=== PATIENT | female | born 1930 | race Caucasian/White ===

== ENCOUNTER 2018-09-15 09:46 | Inpatient (IN) | payer MEDICARE ==
[~2018-09-15] VITALS: Ht 157.5 cm; Wt 70.0 kg
[~2018-09-15 09:46] MED LIST: EPINEPHRINE 1 MG/ML, 1ML ONE; KETOROLAC 60 MG/2 ML ONE; ROPIvacaine/PF 0.2%, 20 ML ONE; TRANEXAMIC ACID 100 MG/ML, 10ML ONE
[2018-09-15] MEDS ORDERED: LACTATED RINGERS 1,000 ML IV SCH (13:02)
[2018-09-15 13:08] VITALS: BP 139/72
[2018-09-15] MEDS ORDERED: WARF4TAB65 PO (13:13)
[2018-09-15] MEDS ORDERED: ATEN25TA PO (13:13)
[2018-09-15] MEDS ORDERED: LOVA40TA2 PO (13:13)
[2018-09-15] MEDS ORDERED: VANCOMYCIN PER PHARMACY MC ONE (13:30)
[2018-09-15] MEDS ORDERED: VANCOMYCIN 1,200 MG in SODIUM CHLORIDE 0.9% 250 ML IV ONE (13:30)
[2018-09-15] MEDS ORDERED: ACETAMINOPHEN 500 MG TABLET PO ONE (13:30)
[2018-09-15] MEDS ORDERED: GABAPENTIN 300 MG CAPSULE PO ONE (13:30)
[2018-09-15 13:32] LABS: INTERNATIONAL NORMALIZED RATIO 1.03 (0.93-1.1); PROTHROMBIN TIME 10.7 Seconds (9.6-11.5)
[2018-09-15] MEDS ORDERED: FENTANYL PF 250 MCG/5ML ONE (15:18)
[2018-09-15] MEDS ORDERED: ONDANSETRON 2MG/ML, 2ML ONE (15:19)
[2018-09-15] MEDS ORDERED: DEXAMETHASONE 4 MG/ML, 1ML ONE (15:19)
[2018-09-15] MEDS ORDERED: GLYCOPYRROLATE 0.2MG/1ML, 5ML ONE (15:19)
[2018-09-15] MEDS ORDERED: PROPOFOL 10 MG/ML, 20ML ONE (15:19)
[2018-09-15] MEDS ORDERED: NEOSTIGMINE 1 MG/ML, 10ML ONE (15:19)
[2018-09-15] MEDS ORDERED: SUCCINYLCHOLINE 20 MG/ML, 10ML ONE (15:19)
[2018-09-15] MEDS ORDERED: CEFAZOLIN 1,000 MG ONE (15:19)
[2018-09-15] MEDS ORDERED: ROCURONIUM 10MG/ML,5ML ONE (15:19)
[2018-09-15] MEDS ORDERED: PROMETHAZINE 12.5 MG SUPP PR PRN (16:30)
[2018-09-15] MEDS ORDERED: TRANEXAMIC ACID 1,000 MG in SODIUM CHLORIDE 0.9% 100 ML IVPB ONE (16:30)
[2018-09-15] MEDS ORDERED: SENNA/DOCUSATE TABLET PO PRN (16:30)
[2018-09-15] MEDS ORDERED: ONDANSETRON 2MG/ML, 2ML IV PRN ×2 (16:30→17:30)
[2018-09-15] MEDS ORDERED: ONDANSETRON 4 MG TABLET PO PRN (16:30)
[2018-09-15] MEDS ORDERED: DIPHENHYDRAMINE 25 MG CAPSULE PO PRN (16:30)
[2018-09-15] MEDS ORDERED: PROMETHAZINE 25 MG/ML, 1ML IM PRN (16:30)
[2018-09-15] MEDS ORDERED: HYDROmorphone 1 MG/ML, 1ML IV PRN ×2 (16:30→17:30)
[2018-09-15] MEDS ORDERED: ALUMINUM/MAG/SIMETHICONE 30 ML UDC PO PRN (16:30)
[2018-09-15] MEDS ORDERED: OXYcodone IR 5MG TABLET PO PRN (16:30)
[2018-09-15] MEDS ORDERED: PHENYLEPHRINE 10 MG/ML ONE (16:34)
[2018-09-15] MEDS ORDERED: EPHEDRINE 50 MG/ML, 1ML ONE (16:34)
[2018-09-15] MEDS ORDERED: LACTATED RINGERS 1,000 ML ONE (16:34)
[2018-09-15] MEDS ORDERED: hydrALAzine 20 MG/ML, 1ML IV PRN (17:30)
[2018-09-15] MEDS ORDERED: METOPROLOL 1 MG/ML, 5ML IV PRN (17:30)
[2018-09-15] MEDS ORDERED: LORazepam 2 MG/ML, 1ML IVPush PRN (17:30)
[2018-09-15] MEDS ORDERED: ONDANSETRON ODT 8 MG PO PRN (17:30)
[2018-09-15] MEDS ORDERED: MORPHINE SULFATE 4 MG/ML, 1ML IVPush PRN (17:30)
[2018-09-15] MEDS ORDERED: PROCHLORPERAZINE 5 MG/ML, 2ML IV PRN (17:30)
[2018-09-15] MEDS ORDERED: OXYcodone 5 MG/5 ML ORAL.SOL UDC PO PRN (17:30)
[2018-09-15] MEDS ORDERED: FENTANYL PF 100 MCG/2ML IV PRN (17:30)
[2018-09-15] MEDS ORDERED: FENTANYL PF 100 MCG/2ML ONE (17:39)
[2018-09-15] MEDS ORDERED: HYDROmorphone 2 MG/ML, 1ML ONE (18:29)
[2018-09-15 19:35] LABS: BASOPHILS # (AUTO) 0.03 x10^3/uL (0-0.1); BASOPHILS % (AUTO) 0 % (0-1); EOSINOPHILS % (AUTO) 1 % (1-7); LYMPHOCYTES # (AUTO) 2.31 x10^3/uL (1-3.4); LYMPHOCYTES % (AUTO) 16 % (22-44); MD NO; MEAN CORPUSCULAR HEMOGLOBIN 29.7 pg (27.0-34.8); MEAN CORPUSCULAR HGB CONC 33.7 g/dL (32.4-35.8); MEAN CORPUSCULAR VOLUME 88.2 fL (80-100); MEAN PLATELET VOLUME 8.9 fL (7.4-10.4); MONOCYTES # (AUTO) 0.34 x10^3/uL (0.2-0.8); MONOCYTES % (AUTO) 2 % (2-9); NEUTROPHILS # (AUTO) 11.42 x10^3/uL (1.8-6.8); NEUTROPHILS % (AUTO) 80 % (42-75); PLATELET COUNT 205 x10^3/uL (130-400); RED BLOOD COUNT 4.17 x10^6/uL (3.82-5.3); RED CELL DISTRIBUTION WIDTH 14.7 % (9.6-15.2)
[2018-09-15] MEDS: D5%-0.45NACL+KCL 20MEQ 1,000 ML IV SCH (22:21)
[2018-09-15] MEDS: DOCUSATE 100 MG CAPSULE PO SCH (22:21)
[2018-09-15 23:15] VITALS: BP 93/54
[2018-09-16 00:24] VITALS: BP 114/55
[2018-09-16] MEDS: CEFAZOLIN PMX 1GM/50ML 50 ML IVPB SCH ×2 (01:10→10:14)
[2018-09-16 04:18] VITALS: BP 96/52
[2018-09-16] MEDS: ENOXAPARIN 40 MG/0.4 ML SQ SCH (05:47)
[2018-09-16] MEDS ORDERED: DEXAMETHASONE 4 MG/ML, 1ML IVPush SCH (06:00)
[2018-09-16 07:40] VITALS: BP 101/53
[2018-09-16] MEDS: D5%-0.45NACL+KCL 20MEQ 1,000 ML IV SCH ×2 (08:00→17:26)
[2018-09-16] MEDS: TAMSULOSIN 0.4 MG CAP.ER.24H PO SCH (10:14)
[2018-09-16] MEDS: DOCUSATE 100 MG CAPSULE PO SCH ×2 (10:14→20:51)
[2018-09-16] MEDS ORDERED: DOCU-131 PO (10:31)
[2018-09-16] MEDS ORDERED: CELE200C PO (10:32)
[2018-09-16] MEDS ORDERED: ONDA4TAB10 PO (10:32)
[2018-09-16] MEDS ORDERED: TRAM50TA2 PO (10:33)
[2018-09-16] MEDS ORDERED: OXYC5TAB3 PO (10:34)
[2018-09-16] MEDS: ACETAMINOPHEN 650 MG/20.3 ML UDC PO PRN (12:00)
[2018-09-16] MEDS: MAGNESIUM HYDROXIDE 8%, 30ML UDC PO PRN (12:04)
[2018-09-16 12:55] VITALS: BP 91/52
[2018-09-16] MEDS: KETOROLAC 30 MG/1 ML IV SCH (17:23)
[2018-09-16 19:06] VITALS: BP 103/53
[2018-09-17] MEDS: KETOROLAC 30 MG/1 ML IV SCH ×2 (00:42→08:53)
[2018-09-17] MEDS: D5%-0.45NACL+KCL 20MEQ 1,000 ML IV SCH ×3 (00:42→18:59)
[2018-09-17 01:50] VITALS: BP 101/54
[2018-09-17] MEDS: ENOXAPARIN 40 MG/0.4 ML SQ SCH ×2 (05:58→08:47)
[2018-09-17 07:22] VITALS: BP 100/54
[2018-09-17] MEDS: TAMSULOSIN 0.4 MG CAP.ER.24H PO SCH (08:44)
[2018-09-17] MEDS: MAGNESIUM HYDROXIDE 8%, 30ML UDC PO PRN (08:44)
[2018-09-17] MEDS: ACETAMINOPHEN 650 MG/20.3 ML UDC PO PRN (08:44)
[2018-09-17] MEDS: DOCUSATE 100 MG CAPSULE PO SCH ×2 (08:45→21:00)
[2018-09-17 13:50] VITALS: BP 86/49
[2018-09-17 16:48] VITALS: BP 91/43
[2018-09-17] MEDS ORDERED: WARFARIN 2 MG TABLET PO-COUM SCH ×2 (18:00→20:30)
[2018-09-17 18:39] LABS: INTERNATIONAL NORMALIZED RATIO 0.96 (0.93-1.1)
[2018-09-17] MEDS ORDERED: WARFARIN 2 MG TABLET PO-COUM ONE (18:50)
[2018-09-17 19:21] VITALS: BP 105/57
[2018-09-17] MEDS ORDERED: WARFARIN 5 MG TABLET PO-COUM ONE (19:30)
[2018-09-18 02:47] VITALS: BP 92/55
[2018-09-18 05:09] LABS: INTERNATIONAL NORMALIZED RATIO 0.94 (0.93-1.1); PROTHROMBIN TIME 9.8 Seconds (9.6-11.5)
[2018-09-18] MEDS: D5%-0.45NACL+KCL 20MEQ 1,000 ML IV SCH (06:00)
[2018-09-18 07:45] VITALS: BP 101/58
[2018-09-18] MEDS: DOCUSATE 100 MG CAPSULE PO SCH (09:00)
[2018-09-18 12:40] VITALS: BP 112/69
== END 2018-09-18 13:05 | DRG 467 ==
LOC: ORIP 12:00 → 4NOR 20:45
PROVIDERS: ADMIT Orthopaedic Surgery; ATTEND Orthopaedic Surgery
PROC: 0SP90JZ Removal of Synthetic Substitute from Right Hip Joint, Open Approach (ICD-10-PCS; 2018-09-15)
PROC: 0SR901Z Replacement of Right Hip Joint with Metal Synthetic Substitute, Open Approach (ICD-10-PCS; principal; 2018-09-15 14:15)
DX: T84.030A Mechanical loosening of internal right hip prosthetic joint, initial encounter (principal); D62 Acute posthemorrhagic anemia; Y79.2 Prosthetic and other implants, materials and accessory orthopedic devices associated with adverse incidents; I10 Essential (primary) hypertension; I48.91 Unspecified atrial fibrillation; Y92.89 Other specified places as the place of occurrence of the external cause; Z95.0 Presence of cardiac pacemaker
CPT/HCPCS: 36415; 72170; 85014; 85018; 85025; 85610; 86850; 86900; 87070; 87075; 87205; 93005; C1713; G0378; J0171; J0690; J1100; J1170; J1650; J1885; J2405; J2704; J2710; J2795; J3010; J3370; J3490; C1762; C1776; J0330; J2370; J3480; J7050; J7120